=== PATIENT | female | born 1995 | race Hispanic/Latino ===

== ENCOUNTER → 2016-07-08 | Day surgery (SDC) | payer OTHER ==
[~2016-07-08] VITALS: Ht 157.5 cm; Wt 49.9 kg
[~2016-07-08] MED LIST: BIRTH CONTROL PILLS; DEXILANT60 M1 PO; ESCITALOPRAM5 MG PO; GOLYTELY1 PDR PO; IBUPROFEN600 MG PO; LINZESS145 MC1 PO; NEXIUM40 M1 PO; PREDNISONE 20MG20 MG PO; PROAIR HFA8.5 GM INH; QUETIAPINE FUM200 MG PO; QUETIAPINE FUMA50 MG PO; SERTRALINE HYDR50 MG PO; TRAMADOL50 MG PO; TRI-PREVIFEM 351 TAB PO; ZITHROMAX Z-PA250 M1 PO; ZOFRAN4 M1 PO
--- NOTE | 2016-07-08 13:39 | Operative Report ---
Operative/Inv Procedure Report Surgery Date: 07/08/16 Name of Procedure: Excision deep back lipoma, 4 cm Pre-Operative Diagnosis: Lipoma Post-Operative Diagnosis: Same Estimated Blood Loss: scant Surgeon/Video Journalist: SUDARSHAN ARREOLA,RICCI Velasquez Anesthesia: local monitored anesthesi Specimens: Lipoma Operative/Procedure Note Note: After consent she is brought to the operative laid prone. Sedation was obtained and her back was prepped and draped. The right-sided lumbar back skin was after local anesthesia. A transverse incision is made sharply. We dissected through the subcutaneous tissues, down through the investing fascia of the back. We then encountered a large lipoma that was attached to the deep muscular tissues. It was circumvention dissected with blunt and cautery dissection. His peeled off the musculature with cautery. There were multiple areas of lipomatous infiltration and each tract was removed. Specimen passed off the field. The wound was irrigated with normal saline. Hemostasis achieved with cautery. Incision was then closed in layers of absorbable sutures. Steri-Strips and sterile dressing applied. Sponge and needle counts are correct Findings: 4 cm deep, subfascial lipoma CC: YUDY ARREOLA,MALU
== END ==
LOC: STS 02:01
DX: D17.1 Benign lipomatous neoplasm of skin and subcutaneous tissue of trunk (principal); K21.9 Gastro-esophageal reflux disease without esophagitis
CPT/HCPCS: 81025; 88304; J0131; J1885; J2250; J2405

== ENCOUNTER → 2016-11-30 | Day surgery (SDC) | payer OTHER ==
[~2016-11-30] VITALS: Ht 157.5 cm; Wt 49.9 kg
--- NOTE | 2016-11-30 11:13 | Operative Report ---
Operative/Inv Procedure Report Surgery Date: 11/30/16 Name of Procedure: Excision deep back lipoma, 4 cm Pre-Operative Diagnosis: Lipoma Post-Operative Diagnosis: Same Estimated Blood Loss: scant Surgeon/Sales Representative Jewelry: SUDARSHAN ARREOLA,RICCI Velasquez/tyron WASHINGTON Anesthesia: local monitored anesthesi Specimens: 4 cm lipoma Operative/Procedure Note Note: After consent she is brought to the operative laid prone. Her back was prepped and draped. The skin around previous scar was infiltrated local anesthesia. The scar was excised sharply and the subcutaneous tissues tissues dissected with cautery. Came down through the investing fascia and encountered a moderate sized lipoma. It was more superiorly based than the one that was dissected previously. We circumvention dissected with sharp and cautery dissection. It was more difficult due to the scarring in the area. There are multiple fingers of infiltrating lipoma, all of which were removed en bloc. The wound was irrigated with saline. Hemostasis achieved with cautery. The incision was closed in layers of 3-0 and 4-0 Vicryl. Steri-Strips and sterile dressing applied. Sponge and needle counts are correct CC: YUDY ARREOLA,MALU
== END ==
LOC: STS 05:22
DX: D17.1 Benign lipomatous neoplasm of skin and subcutaneous tissue of trunk (principal); J45.909 Unspecified asthma, uncomplicated
CPT/HCPCS: 36415; 81025; 88304; J2250

== ENCOUNTER 2017-07-30 19:58 | Emergency (ER) | payer OTHER ==
[~2017-07-30] VITALS: Ht 157.5 cm; Wt 52.2 kg
[~2017-07-30 19:58] MED LIST changes: +LEVSIN-SL0.125 MG SL; +REGLAN10 M1 PO
[2017-07-30 20:54] LABS: ABSOLUTE BASOPHIL COUNT 0 /CUMM (0.0-0.2); ABSOLUTE EOSINOPHIL COUNT 0.1 /CUMM (0.0-0.7); ABSOLUTE GRANULOCYTE CT 5.9 /CUMM (1.4-6.5); ABSOLUTE LYMPH COUNT 2.4 /CUMM (1.2-3.4); ABSOLUTE MONOCYTE COUNT 0.6 /CUMM (0.10-0.60); BASOPHIL % 0.5 % (0.0-2.0); EOSINOPHIL % 0.6 % (0-5); GRANULOCYTE % 65.9 % (42.2-75.2); HEMATOCRIT 36.8 % (37-47); MEAN CORPUSCULAR VOLUME 87.9 FL (81.0-99.0); MEAN PLATELET VOLUME 8.7 FL (7.4-10.4); PLATELET COUNT 286 /CUMM (130-400); RBC DISTRIBUTION WIDTH 13.9 % (11.5-14.5); RED BLOOD CELL CT 4.18 /CUMM (4.20-5.40); WHITE BLOOD CELL COUNT 8.9 /CUMM (4.8-10.8)
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
--- NOTE | 2017-07-30 22:49 | RADIOLOGY REPORT ---
EXAMINATION: XR CHEST CLINICAL INFORMATION: Chest pain. COMPARISON: Chest radiograph 03/03/2017. TECHNIQUE: Only a single portable AP radiograph of the chest is submitted for evaluation. FINDINGS: The lungs are clear. No pleural effusion. Cardiomediastinal silhouette and pulmonary vasculature is within normal limits. No acute osseous findings. IMPRESSION: No acute cardiopulmonary disease.
[2017-07-30 23:00] VITALS: BP 103/59
[2017-07-30] MEDS ORDERED: IBUPROFEN800 M1 PO (23:18)
== END 2017-07-30 23:27 ==
LOC: ERH 19:58
PROVIDERS: Pediatrics
DX: R07.89 Other chest pain (principal)
CPT/HCPCS: 71046; 93005; 93010; 96372; J1885